=== PATIENT | female | born 1980 | race Caucasian/White ===

== ENCOUNTER 2024-03-26 13:08 | Emergency (ER) | payer BC ==
[2024-03-26] MEDS ORDERED: Lidocaine 1% (PF) 30 ML VIAL ONE (13:25)
[2024-03-26] MEDS ORDERED: Boostrix 0.5 ML (Tdap) VIAL (>/=7 yrs of age) ONE (13:37)
[2024-03-26] MEDS ORDERED: Bacitracin 1 PK ONE (13:37)
== END 2024-03-26 13:52 | disposition home or self-care (01) ==
LOC: NAV ERS 13:08
DX: S61.512A Laceration without foreign body of left wrist, initial encounter (principal); W26.0XXA Contact with knife, initial encounter; Z23 Encounter for immunization
CPT/HCPCS: 12001; 90715; 99282